=== PATIENT | male | born 1975 | race African-American/Black ===

== ENCOUNTER 2016-08-27 18:10 | Emergency (ER) | payer SELFPAY ==
[2016-08-27] VITALS (19 sets, daily range): BP systolic 112–126; BP diastolic 68–84
[~2016-08-27] VITALS: Ht 188 cm; Wt 99.8 kg
[2016-08-27 18:53] LABS: BASOPHILS % (AUTO) 1.1 % (0.0-2.0); EOSINOPHILS % (AUTO) 0.6 % (0.0-3.0); LYMPHOCYTES % (AUTO) 15.9 % (20.0-45.0); MEAN CORPUSCULAR HEMOGLOBIN 31.6 PG (27.0-31.0); MEAN CORPUSCULAR HGB CONC 32.9 G/DL (32.0-36.0); MEAN CORPUSCULAR VOLUME 96 FL (80-99); MEAN PLATELET VOLUME 6.1 FL (6.5-10.1); NEUTROPHILS % (AUTO) 77.4 % (45.0-75.0); PLATELET COUNT 359 K/UL (150-450); RED BLOOD COUNT 4.64 M/UL (4.70-6.10); RED CELL DISTRIBUTION WIDTH 12.6 % (11.6-14.8); WHITE BLOOD COUNT 11.6 K/UL (4.8-10.8)
[2016-08-27 19:14] LABS: ACETAMINOPHEN < 10 ug/mL (10-30); ALANINE AMINOTRANSFERASE 28 U/L (3-41); ALBUMIN/GLOBULIN RATIO 1.5 (1.0-2.7); ALCOHOL 396 mg/dL; ANION GAP 19 (5-15); ASPARTATE AMINO TRANSFERASE 33 U/L (5-40); CALCIUM 9.2 mg/dL (8.6-10.2); CARBON DIOXIDE 23 mEQ/L (20-30); CHLORIDE 106 mEQ/L (98-107); GLOMERULAR FILTRATION RATE > 60 mL/min (>60); HEMOLYSIS 175; POTASSIUM 4.8 mEQ/L (3.4-4.9); SODIUM 148 mEQ/L (135-145); TOTAL PROTEIN 7.6 g/dL (6.6-8.7)
--- NOTE | 2016-08-27 19:47 | Emergency Room Report ---
History of Present Illness General Chief Complaint: Overdose Source: EMS (Sharmin Frazier) Present Illness HPI 40-year-old male presents emergency department for aggressive behavior in public and stated on scene to fire him [employer] that he took "Jenna". Patient does not answer questions, he is alert, unable to determine orientation due to poor patient cooperation. (Sharmin Frazier) Allergies: Coded Allergies: No Known Allergies (Unverified , 08/27/16) Patient History Limited by: other - Limited due to poor patient cooperation. Past Medical History: see triage record Past Surgical History: none Pertinent Family History: none Social History: Reports: drug use Immunizations: UTD Reviewed Nursing Documentation: PMH: Agreed, PSxH: Agreed (Sharmin Frazier) Nursing Documentation-PMH Past Medical History: No Stated History (Sharmin Frazier) Review of Systems All Other Systems: limited (Sharmin Frazier.AJesús) Physical Exam Vital Signs Date Time Temp Pulse Resp B/P Pulse Ox O2 Delivery O2 Flow Rate FiO2 08/27/16 17:58 97.5 110 15 132/74 99 Room Air Sp02 EP Interpretation: reviewed, abnormal - tachycardic 110 General Appearance: no apparent distress, alert, non-toxic Head: normocephalic, atraumatic Eyes: bilateral eye PERRL, bilateral eye normal inspection ENT: hearing grossly normal, normal pharynx, no angioedema, normal voice, TMs + canals normal Neck: full range of motion, supple/symm/no masses Respiratory: chest non-tender, lungs clear, normal breath sounds, speaking full sentences Cardiovascular #1: regular rate, rhythm, no edema Cardiovascular #2: 2+ radial (R), 2+ radial (L), 2+ dorsalis pedis (R), 2+ dorsalis pedis (L) Gastrointestinal: normal bowel sounds, non tender, soft, no guarding, no rebound Rectal: deferred Genitourinary: normal inspection, no CVA tenderness Musculoskeletal: back normal, gait/station normal, normal range of motion, non- tender, no calf tenderness Neurologic: alert, oriented x3, responsive, motor strength/tone normal, sensory intact, speech normal Psychiatric: other - Unable to assess due to poor patient cooperation Reflexes: 3+ tricep (R), 3+ tricep (L), 3+ knee (R), 3+ knee (L) Skin: normal color, no rash, warm/dry, well hydrated Lymphatic: no adenopathy (Sharmin Frazier) Medical Decision Making PA Attestation Dr. Rhodes is my supervising Physician whom patient management has been discussed with. (Sharmin Frazier) Diagnostic Impression: Primary Impression: Alcohol intoxication Qualified Codes: F10.129 - Alcohol abuse with intoxication, unspecified ER Course Pt. presents to the ED aggressive behavior in public and stated on scene to fire him [employer] that he took "Jenna". Pt is alert, intermittently physically aggressive. Refuses to answer questions Ddx considered but are not limited to OD, SI/HI, psychosis, UTI, intoxication Vital signs: Patient is tachycardic at 110 , pt. is afebrile, draining vital signs are within normal limits H&PE are most consistent with behavioral/mental health issue, possible drug use ORDERS: none required at this time, the diagnosis is clinical - CBC: mildly elevated WBC - Serum ETOH: 396 -UA: negative for infection see results attached. -UDS: Pending -Psych panel ordered: see results attached - no acute intoxication. ED INTERVENTIONS: - Placed on behavioral restraints, after police officers removed and has - 1000cc NS DISPOSITION: This patient is being signed out to Dr. Guaman for further evaluation and observation UDS still pending. PET EVAL may be necessary Labs Test 08/27/16 18:40 White Blood Count 11.6 K/UL (4.8-10.8) Red Blood Count 4.64 M/UL (4.70-6.10) Hemoglobin 14.7 G/DL (14.2-18.0) Hematocrit 44.7 % (42.0-52.0) Mean Corpuscular Volume 96 FL (80-99) Mean Corpuscular Hemoglobin 31.6 PG (27.0-31.0) Mean Corpuscular Hemoglobin Concent 32.9 G/DL (32.0-36.0) Red Cell Distribution Width 12.6 % (11.6-14.8) Platelet Count 359 K/UL (150-450) Mean Platelet Volume 6.1 FL (6.5-10.1) Neutrophils (%) (Auto) 77.4 % (45.0-75.0) Lymphocytes (%) (Auto) 15.9 % (20.0-45.0) Monocytes (%) (Auto) 5.0 % (1.0-10.0) Eosinophils (%) (Auto) 0.6 % (0.0-3.0) Basophils (%) (Auto) 1.1 % (0.0-2.0) Sodium Level 148 mEQ/L (135-145) Potassium Level 4.8 mEQ/L (3.4-4.9) Chloride Level 106 mEQ/L (98-107) Carbon Dioxide Level 23 mEQ/L (20-30) Anion Gap 19 (5-15) Blood Urea Nitrogen 6 mg/dL (7-23) Creatinine 1.0 mg/dL (0.7-1.2) Estimat Glomerular Filtration Rate > 60 mL/min (>60) Glucose Level 102 mg/dL (74-106) Calcium Level 9.2 mg/dL (8.6-10.2) Total Bilirubin 0.3 mg/dL (0.0-1.2) Aspartate Amino Transf (AST/SGOT) 33 U/L (5-40) Alanine Aminotransferase (ALT/SGPT) 28 U/L (3-41) Alkaline Phosphatase 81 U/L (40-129) Total Protein 7.6 g/dL (6.6-8.7) Albumin 4.6 g/dL (3.5-5.2) Globulin 3.0 g/dL Albumin/Globulin Ratio 1.5 (1.0-2.7) Salicylates Level < 1 mg/dL (10-30) Acetaminophen Level < 10 ug/mL (10-30) Serum Alcohol 396 mg/dL (Sharmin Frazier P.A.) ER Course Patient signed out to me. He came in very intoxicated. Now he is completely awake. Admit to drinking heavily. No suicidal thought homicidal thought. He eating drinking without a problem. He walked to the bathroom without difficulty. He said he doesn't want to stay. He does alcohol level was very high, he is clinically sober. This indicate a very tolerance and chronicity to his alcohol abuse. Recommend outpatient followup for rehabilitation. Will offer him different services available to him. Patient declined so far. We'll discharge home. This patient is a chronic risk of self injury due to poor impulse control, limited coping skills, and judgment intermittently impaired by intoxication. I believe that the available clinical evidence to suggest that these characteristics derived primarily from personality disorder and are likely very stable over time. Hospitalization would likely attenuate risk of self-harm only during prison period, without lasting risk reduction. Serious self-harm , while possible, would likely be inadvertent, and because of impulsivity, and foreseeable. For these reasons, I do not believe hospitalization would provide meaningful reduction in risk of self-harm. (SUNDAR FRIEND M.D.) Last Vital Signs Date Time Temp Pulse Resp B/P Pulse Ox O2 Delivery O2 Flow Rate FiO2 08/27/16 19:15 106 20 100 Room Air 08/27/16 19:09 123/71 08/27/16 17:58 97.5 (Sharmin Frazier) Status: improved (SUNDAR FRIEND M.D.) Disposition: HOME, SELF-CARE Condition: Stable Signed Out To: Dr. Friend (Sharmin Frazier) Additional Instructions: Abstain from drugs and alcohol. Followup with your DrJesús in 2-3 days. Return if symptom worsen. Sharmin Frazier Aug 27, 2016 19:47 SUNDAR FRIEND M.D. Aug 27, 2016 22:33
[2016-08-27] MEDS ORDERED: Thiamine HCl 100 MG in D5W 50 ML IVPB SCH (20:00)
== END 2016-08-27 23:05 | disposition home or self-care (01) ==
LOC: EDBD 18:10 → EMR 19:59
DX: F10.129 Alcohol abuse with intoxication, unspecified (principal); Y90.8 Blood alcohol level of 240 mg/100 ml or more
CPT/HCPCS: 36415; 80053; 85025; 96374; 99284; G0480; 80329